=== PATIENT | female | born 1960 | race Caucasian/White ===

== ENCOUNTER 2018-05-04 12:25 | Emergency (ER) | payer BC ==
[~2018-05-04] VITALS: Ht 160 cm; Wt 77.1 kg
[~2018-05-04 12:25] MED LIST: BPR100T PO; CEFP200T2 PO; CPR500T PO; HYDR1TAB8 OP; LEVO500T69 PO; NITR100C PO; ONDAN4ODT PO; PHEN200T27 PO; POTA10TA17 PO; PROP1TAB77 PO; SRTR100T PO; TMSL.4C PO; TPR100T PO; [UNRECOGNIZED DRUG - CODE] PO
--- OUTSIDE RECORDS SUMMARY | 2018-05-04 12:30 | XMS REPORT ---
Author Author GERALD ROJAS Organization [facility] Address [address] [place] [address] Care Team Providers Care Instrument Room Technician Name Role Phone GERALD ROJAS Unavailable PROBLEMS Unknown Problems ALLERGIES No Information ENCOUNTERS Encounter Location Date Diagnosis [facility] [address] [facility] [id number] [address] Feb, [facility] IN [facility] [address] [facility] [id number] [address] Apr, Visit for TB skin test Z11.1 [facility] [address] [id number] [address] Mar, Encounter for immunization Z23 IMMUNIZATIONS No Known Immunizations SOCIAL HISTORY Never Assessed REASON FOR VISIT medication PLAN OF CARE VITAL SIGNS MEDICATIONS Medication Instructions Dosage Frequency Start Date End Date Duration Status Albenza 200 mg Orally once repeat in 2 weeks 2 tablets Feb, Active RESULTS No Results PROCEDURES No Known procedures INSTRUCTIONS MEDICATIONS ADMINISTERED No Known Medications
--- OUTSIDE RECORDS SUMMARY | 2018-05-04 12:30 | XMS REPORT ---
Author Author PAIGE PIRES Organization [employer] Address Unknown Phone Unavailable Care Team Providers Care Membership Correspondent Name Role Phone PAIGE PIRES Unavailable Allergies No Known Allergies Problems Problem Type Condition Code Onset Dates Condition Status Assessment Encounter for immunization Z23 Active Medications No Known Medications Procedures Procedure Coding System Code Date SINGLE IMMUNIZATION ADMIN CPT-4 01553 Mar 27, 2015 FLUARIX QUAD (3 & UP)-GSK-2014 CPT-4 34021 Mar 27, 2015 Results No Known Results Immunizations Vaccine Administration Date FLUARIX QUAD (3 & UP)-GSK-2014Mar 27, 2015 Summary Purpose [employer] Submission
--- OUTSIDE RECORDS SUMMARY | 2018-05-04 12:30 | XMS REPORT | Continuity of Care Document ---
Author Author [facility] Organization [facility] Address Unknown Phone Unavailable Allergies Active Description Code Type Severity Reaction Onset Reported/Identified Relationship to Patient Clinical Status Yes acetaminophen [id number] Drug Allergy Mild VOMITING 01/24/2010 Yes propoxyphene [id number] Drug Allergy Mild VOMITING 01/24/2010 Medications There is no data. Problems Date Dx Coded Attending Type Code Diagnosis Diagnosed By 01/22/2010 Ot 592.0 01/23/2010 Ot 599.0 01/23/2010 Ot 787.03 01/23/2010 Ot 789.00 01/23/2010 Ot V45.89 01/27/2010 Ot 276.8 01/27/2010 Ot 486 01/27/2010 Ot 564.00 01/27/2010 Ot 592.9 01/27/2010 Ot 599.0 01/27/2010 Ot 784.0 01/27/2010 Ot 790.6 01/27/2010 Ot 997.5 02/19/2010 Ot 575.11 04/08/2010 Ot 592.0 04/30/2010 Ot 787.91 DIARRHEA 05/31/2011 Ot 592.0 CALCULUS OF KIDNEY 06/04/2012 Ot 592.1 CALCULUS OF URETER 06/04/2012 Ot 789.09 ABDOMINAL PAIN, OTHER SPECIFIED SITE 10/16/2014 Ot V16.3 10/16/2014 Ot V76.11 10/16/2014 Ot 787.02 10/16/2014 Ot 789.00 10/16/2014 Ot 599.0 10/16/2014 Ot 592.0 10/16/2014 Ot 789.00 10/16/2014 Ot 790.6 10/16/2014 Ot 592.0 10/16/2014 Ot V72.83 10/16/2014 Ot V74.8 10/16/2014 Ot 592.0 10/16/2014 Ot V67.09 10/16/2014 Ot 575.8 10/16/2014 Ot V72.63 10/16/2014 Ot V72.81 10/16/2014 Ot V74.8 10/16/2014 Ot 592.0 10/16/2014 Ot 959.4 10/16/2014 Ot E000.8 10/16/2014 Ot E849.5 10/16/2014 Ot E928.9 10/16/2014 Ot 719.47 10/16/2014 Ot 592.0 10/16/2014 Ot V76.12 11/27/2014 MOIZ HALE N PLANT CUSTODIAN Ot 719.41 12/02/2014 Ot V16.3 12/02/2014 Ot V76.11 12/02/2014 Ot 787.02 12/02/2014 Ot 789.00 12/02/2014 Ot 599.0 12/02/2014 Ot 592.0 12/02/2014 Ot 789.00 12/02/2014 Ot 790.6 12/02/2014 Ot 592.0 12/02/2014 Ot V72.83 12/02/2014 Ot V74.8 12/02/2014 Ot 592.0 12/02/2014 Ot V67.09 12/02/2014 Ot 575.8 12/02/2014 Ot V72.63 12/02/2014 Ot V72.81 12/02/2014 Ot V74.8 12/02/2014 Ot 592.0 12/02/2014 Ot 959.4 12/02/2014 Ot E000.8 12/02/2014 Ot E849.5 12/02/2014 Ot E928.9 12/02/2014 Ot 719.47 12/02/2014 Ot 592.0 12/02/2014 Ot V76.12 12/02/2014 MOIZ HALE N PLANT CUSTODIAN Ot 719.41 12/29/2014 Ot V16.3 12/29/2014 Ot V76.11 12/29/2014 Ot 787.02 12/29/2014 Ot 789.00 12/29/2014 Ot 599.0 12/29/2014 Ot 592.0 12/29/2014 Ot 789.00 12/29/2014 Ot 790.6 12/29/2014 Ot 592.0 12/29/2014 Ot V72.83 12/29/2014 Ot V74.8 12/29/2014 Ot 592.0 12/29/2014 Ot V67.09 12/29/2014 Ot 575.8 12/29/2014 Ot V72.63 12/29/2014 Ot V72.81 12/29/2014 Ot V74.8 12/29/2014 Ot 592.0 12/29/2014 Ot 959.4 12/29/2014 Ot E000.8 12/29/2014 Ot E849.5 12/29/2014 Ot E928.9 12/29/2014 Ot 719.47 12/29/2014 Ot 592.0 12/29/2014 Ot V76.12 12/29/2014 MOIZ HALE N PLANT CUSTODIAN Ot 719.41 10/12/2015 Ot V16.3 10/12/2015 Ot V76.11 10/12/2015 Ot 959.4 HAND INJURY NOS 10/12/2015 Ot E000.8 OTHER EXTERNAL CAUSE STATUS 10/12/[address] E849[address]/HIGHWAY 10/12/2015 Ot E928.9 ACCIDENT NOS 10/12/2015 Ot 719.47 JOINT PAIN- ANKLE 10/12/2015 Ot 592.0 CALCULUS OF KIDNEY 10/12/2015 Ot V76.12 OTH SCREEN MAMMO-MALIGN NEOPLASM OF [place] 10/12/2015 MOIZ HALE N [employer] CUSTODIAN Ot 719.41 JOINT PAIN-SHLDER 11/24/2015 Ot V16.3 11/24/2015 Ot V76.11 11/24/2015 Ot 959.4 HAND INJURY NOS 11/24/2015 Ot E000.8 OTHER EXTERNAL CAUSE STATUS 11/24/2015 Ot E849[address]/HIGHWAY 11/24/2015 Ot E928.9 ACCIDENT NOS 11/24/2015 Ot 719.47 JOINT PAIN- ANKLE 11/24/2015 Ot 592.0 CALCULUS OF KIDNEY 11/24/2015 Ot V76.12 OTH SCREEN MAMMO-MALIGN NEOPLASM OF [place] 11/24/2015 MOIZ HALE N PLANT CUSTODIAN Ot 719.41 JOINT PAIN-SHLDER 01/14/2016 Ot V16.3 01/14/2016 Ot V76.11 01/14/2016 Ot 959.4 HAND INJURY NOS 01/14/2016 Ot E000.8 OTHER EXTERNAL CAUSE STATUS 01/14/2016 Ot E849.[address]/HIGHWAY 01/14/2016 Ot E928.9 ACCIDENT NOS 01/14/2016 Ot 719.47 JOINT PAIN- ANKLE 01/14/2016 Ot 592.0 CALCULUS OF KIDNEY 01/14/2016 Ot V76.12 OTH SCREEN MAMMO-MALIGN NEOPLASM OF [place] 01/14/2016 MOIZ HALE N PLANT CUSTODIAN Ot 719.41 JOINT PAIN-SHLDER 01/15/2016 Ot V16.3 01/15/2016 Ot V76.11 01/15/2016 Ot 959.4 HAND INJURY NOS 01/15/2016 Ot E000.8 OTHER EXTERNAL CAUSE STATUS 01/15/2016 Ot E849.[address]/HIGHWAY 01/15/2016 Ot E928.9 ACCIDENT NOS 01/15/2016 Ot 719.47 JOINT PAIN- ANKLE 01/15/2016 Ot 592.0 CALCULUS OF KIDNEY 01/15/2016 Ot V76.12 OTH SCREEN MAMMO-MALIGN NEOPLASM OF [place] 01/15/2016 MOIZ HALE N PLANT CUSTODIAN Ot 719.41 JOINT PAIN-SHLDER 01/22/2016 Ot V16.3 01/22/2016 Ot V76.11 01/22/2016 Ot 959.4 HAND INJURY NOS 01/22/2016 Ot E000.8 OTHER EXTERNAL CAUSE STATUS 01/22/2016 Ot E849.[address]/HIGHWAY 01/22/2016 Ot E928.9 ACCIDENT NOS 01/22/2016 Ot 719.47 JOINT PAIN- ANKLE 01/22/2016 Ot 592.0 CALCULUS OF KIDNEY 01/22/2016 Ot V76.12 OTH SCREEN MAMMO-MALIGN NEOPLASM OF [place] 01/22/2016 MOIZ HALE N PLANT CUSTODIAN Ot 719.41 JOINT PAIN-SHLDER 11/26/2016 Ot V16.3 11/26/2016 Ot V76.11 11/26/2016 Ot V76.12 OTH SCREEN MAMMO-MALIGN NEOPLASM OF [place] 11/26/2016 MOIZ HALE N PLANT CUSTODIAN Ot 719.41 JOINT PAIN-SHLDER 03/17/2017 Ot V16.3 03/17/2017 Ot V76.11 03/17/2017 Ot V76.12 OTH SCREEN MAMMO-MALIGN NEOPLASM OF [place] 03/17/2017 MOIZ HALE Dawson PLANT CUSTODIAN Ot 719.41 JOINT PAIN-SHLDER 06/03/2017 Ot V16.3 06/03/2017 Ot V76.11 06/03/2017 Ot V76.12 OTH SCREEN MAMMO-MALIGN NEOPLASM OF [place] 06/03/2017 MOIZ HALE Dawson PLANT CUSTODIAN Ot 719.41 JOINT PAIN-SHLDER 09/02/2017 Ot V16.3 09/02/2017 Ot V76.11 09/02/2017 Ot V76.12 OTH SCREEN MAMMO-MALIGN NEOPLASM OF [place] 09/02/2017 MOIZ HALE Dawson PLANT CUSTODIAN Ot 719.41 JOINT PAIN-SHLDER Procedures There is no data. Results There is no data. Encounters ACCT No. Visit Date/Time Discharge Status Pt. Type Provider Facility Loc./Unit Complaint [id number] 05/03/2017 09:00:00 05/03/2017 23:59:59 CLS Preadmit DAYSI HALEREYNALDO Osman PL[employer] CUSTODIAN [facility] RAD SCREENING [id number] 03/17/2017 07:19:00 03/17/2017 23:59:59 CLS Preadmit DAYSI HALEREYNALDO Osman PLANT CUSTODIAN [facility] RAD SCREENING [id number] 10/18/2014 09:01:00 10/18/2014 23:59:59 CLS Outpatient DAYSI HALESTEPHANY DHALIWAL [facility] RAD LEFT SHOULDER PAIN, DECREASED ROM [id number] 10/16/2014 09:37:00 Document Registration [id number] 10/16/2014 09:37:00 Document Registration [id number] 10/16/2014 09:37:00 Document Registration [id number] 10/16/2014 09:36:00 Document Registration [id number] 10/16/2014 09:36:00 Document Registration [id number] 10/16/2014 09:36:00 Document Registration [id number] 10/16/2014 09:36:00 Document Registration [id number] 06/01/2011 00:00:00 Document Registration [id number] 05/10/2011 14:11:00 Document Registration [id number] 11/30/2010 15:55:00 Document Registration [id number] 04/09/2010 00:00:00 Document Registration [id number] 02/19/2010 05:37:00 Document Registration [id number] 02/12/2010 15:41:00 Document Registration [id number] 02/02/2010 17:04:00 Document Registration [id number] 01/25/2010 01:15:00 Document Registration [id number] 01/23/2010 01:35:00 Document Registration [id number] 01/22/2010 05:36:00 Document Registration [id number] 01/19/2010 07:45:00 Document Registration [id number] 01/06/2010 09:50:00 Document Registration [id number] 01/06/2010 07:46:00 Document Registration [id number] 01/02/2010 10:48:00 Document Registration [id number] 12/24/2005 15:19:00 Document Registration [id number] 04/27/2017 18:35:00 04/27/2017 23:59:59 [facility] Outpatient PAIGE PIRES [id number] 10/19/2014 04:22:55 ACT Document Registration
--- OUTSIDE RECORDS SUMMARY | 2018-05-04 12:30 | XMS REPORT ---
Author Author BIANCA MENENDEZ [facility] Address [address] [place] [address] Phone Unavailable Care Team Providers Care Fructose Loader Name Role Phone BIANCA MENENDEZ Unavailable Unavailable PROBLEMS Unknown Problems ALLERGIES No Information ENCOUNTERS Encounter Location Date Diagnosis [facility] [id number], [place] [address] Mar, Encounter for immunization Z23 [facility] [id number], [place] [address] Feb, [facility] [id number], [place] [address] Apr, Visit for TB skin test Z11.1 [facility] [id number], [place] [address] Mar, 2015 Encounter for immunization Z23 IMMUNIZATIONS Vaccine Route Administration Date Status FLULAVAL QUAD 0.5ML (6 MO & UP) 2017 IM Intramuscular Mar 14, 2018 Administered SOCIAL HISTORY Never Assessed REASON FOR VISIT Flu Shot PLAN OF CARE VITAL SIGNS MEDICATIONS Unknown Medications RESULTS No Results PROCEDURES Procedure Date Ordered Result Body Site FLULAVAL QUAD 0.5ML (6 MO AND UP) 2018 Mar 14, 2018 SINGLE IMMUNIZATION ADMIN Mar 14, 2018 INSTRUCTIONS MEDICATIONS ADMINISTERED No Known Medications
--- NOTE | 2018-05-04 12:48 | ED Integumentary General ---
General Chief Complaint: Laceration Stated Complaint: CUT LEFT POINTER FINGER Source: patient Exam Limitations: no limitations History of Present Illness Date Seen by Provider: May 04, 2018 Time Seen by Provider: 12:47 Allergies and Home Medications Allergies Coded Allergies: acetaminophen (Unverified Adverse Reaction, Mild, VOMITING, 01/24/10) propoxyphene (Unverified Adverse Reaction, Mild, VOMITING, 01/24/10) Home Medications Ciprofloxacin 500 Mg Tablet, 1 TAB PO BID FOR INFECTION Prescribed by: SIGIFREDO TINOCO on 06/04/12516 Hydrocodone Bit/Ibuprofen 1 Each Tablet, 1-2 EACH OP Q 4 - 6 HRS PRN FOR PAIN Prescribed by: SIGIFREDO TINOCO on 06/04/12516 Ondansetron Hcl 4 Mg Tab, 4 MG PO Q4H FOR NAUSEA AND VOMITING Prescribed by: SIGIFREDO TINOCO on 06/04/12516 Potassium Citrate 10 Meq Tablet.sa, 10 MEQ PO TID, (Reported) Sertraline Hcl 100 Mg Tablet, 1 TAB PO DAILY, (Reported) Tamsulosin Hcl 0.4 Mg Cap.sr.24h, 1 CAP PO DAILY Prescribed by: SIGIFREDO TINOCO on 06/04/12516 Topiramate 100 Mg Tab, 100 MG PO DAILY, (Reported) Past Fgphjrj-Zyadpq-Zbhyrk Hx Patient Social History Alcohol Use: Occasionally Uses Recreational Drug Use: No Smoking Status: Never a Smoker Recent Foreign Travel: No Contact w/Someone Who Travel: No Recent Hopitalizations: No Physical Abuse: No Sexual Abuse: No Mistreated: No Fear: No Immunizations Up To Date Date of Influenza Vaccine: Mar 22, 2012 Past Medical History Surgeries: Yes (R SHOULDER, L KNEE.) Gallbladder, Tubal Ligation Respiratory: No Cardiac: No Neurological: No Reproductive Disorders: No Sexually Transmitted Disease: No Genitourinary: No Gastrointestinal: No Musculoskeletal: Yes (fibromyalgia) Endocrine: No Psychosocial: Yes Blood Disorders: No Physical Exam Vital Signs Vital Signs - First Documented 05/04/18 12:42 Temp 98.2 Pulse 102 Resp 16 B/P (MAP) 146/101 (116) Pulse Ox 96 Capillary Refill : Less Than 3 Seconds Progress/Results/Core Measures Results/Orders My Orders Orders - ABRAM MARTINEZ Lidocaine 1% Inj 20 Ml (Xylocaine 1% Inj (05/04/18 13:00) Dipht,Pertuss(Acell),Tet Adult (Boostrix (05/04/18 13:00) Medications Given in ED Vital Signs/I&O 05/04/18 05/04/18 12:42 13:13 Temp 98.2 Pulse 102 74 Resp 16 16 B/P (MAP) 146/101 (116) 136/87 (103) Pulse Ox 96 99 Departure Impression Primary Impression: Laceration Disposition: HOME, SELF-CARE Condition: Stable/Unchanged Departure-Patient Inst. Decision time for Depature: 12:47 Referrals: TAMIKO DUNCAN MD (PCP/Family) Primary Care Physician Patient Instructions: Laceration Repair With Glue (DC) Add. Discharge Instructions: Let the glue fall off on its own. Watch for signs of infection such as increased redness, swelling, drainage, pain. If the wound should start bleeding apply pressure or reinforce the bandage. Follow-up with her primary care provider as needed return back to the emergency room for any worsening symptoms or concerns as needed. All discharge instructions reviewed with patient and/or family. Voiced understanding. ABRAM MARTINEZ May 04, 2018 12:47
[2018-05-04] MEDS ORDERED: TETANUS,DIPTH,PERTUSS P/F (BOOSTRIX) 0.5 ML VIAL IM ONE (13:00)
[2018-05-04] MEDS ORDERED: LIDOCAINE 1% INJ 20 ML 20 ML VIAL INJ ONE (13:00)
[2018-05-04 13:13] VITALS: BP 136/87
== END 2018-05-04 13:13 | disposition home or self-care (01) ==
LOC: EDUNIT# 12:25 → ER 12:27
DX: S61.211A Laceration without foreign body of left index finger without damage to nail, initial encounter (principal); Z88.8 Allergy status to other drugs, medicaments and biological substances; Z98.51 Tubal ligation status; Z23 Encounter for immunization; Y28.9XXA Contact with unspecified sharp object, undetermined intent, initial encounter
CPT/HCPCS: 12001; 90715

== ENCOUNTER 2021-11-14 22:13 | Emergency (ER) | payer BC ==
[~2021-11-14] VITALS: Ht 162.5 cm; Wt 91.6 kg
[2021-11-15 01:10] VITALS: BP 137/92
[2021-11-15] MEDS ORDERED: TETANUS,DIPTH,PERTUSS P/F (BOOSTRIX) 0.5 ML VIAL IM ONE (02:00)
--- NOTE | 2021-11-15 02:55 | ED Fall/Injury ---
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 PT C/O LEFT SHOULDER AND KNEE PAIN. Allergies and Home Medications Allergies Coded Allergies: acetaminophen (Unverified Adverse Reaction, Mild, VOMITING, 01/24/10) propoxyphene (Unverified Adverse Reaction, Mild, VOMITING, 01/24/10) Patient Home Medication List Ciprofloxacin (Cipro) 500 Mg Tablet, 1 TAB PO BID Prescribed by: SIGIFREDO TINOCO on 06/04/12516 Hydrocodone Bit/Ibuprofen (Vicoprofen 200-7.5 Mg Tab) 1 Each Tablet, 1-2 EACH OP Q 4 - 6 HRS PRN Prescribed by: SIGIFREDO TINOCO on 06/04/12516 Ondansetron Hcl (Zofran Oral Dissolve) 4 Mg Tab, 4 MG PO Q4H Prescribed by: SIGIFREDO TINOCO on 06/04/12516 Potassium Citrate (Potassium Citrate) 10 Meq Tablet.sa, 10 MEQ PO TID, (Reported) Entered as Reported by: SHERIE KENNEDY on 02/12/10 1604 Sertraline Hcl (Zoloft) 100 Mg Tablet, 1 TAB PO DAILY, (Reported) Entered as Reported by: DAYNA WILCOX on 01/23/10 0143 Tamsulosin Hcl (Flomax) 0.4 Mg Cap.sr.24h, 1 CAP PO DAILY Prescribed by: SIGIFREDO TINOCO on 06/04/12516 Topiramate (Topamax 100 Mg) 100 Mg Tab, 100 MG PO DAILY, (Reported) Entered as Reported by: ANA ALLISON on 01/19/10 0825 Past Qrkpcqr-Ignmar-Opuoer Hx Patient Social History Tobacco Use?: No Use of E-Cig and/or Vaping dev: No Substance use?: No Alcohol Use?: No Immunizations Up To Date Influenza Vaccine Up-to-Date: Yes; Up-to-Date First/Initial COVID19 Vaccinat: 2020 Second COVID19 Vaccination Donald: 2020 COVID19 Vaccine Blood Bank Credit Clerk: LAWRENCE Past Medical History Surgeries: Yes (R SHOULDER, L KNEE.) Gallbladder, Tubal Ligation Respiratory: No Cardiac: No Neurological: No Reproductive Disorders: No Sexually Transmitted Disease: No Genitourinary: No Gastrointestinal: No Musculoskeletal: Yes (fibromyalgia) Endocrine: No Psychosocial: Yes Blood Disorders: No Physical Exam Vital Signs Vital Signs - First Documented 11/15/21 01:10 Temp 36.4 Pulse 79 Resp 20 B/P (MAP) 137/92 (107) Pulse Ox 97 O2 Delivery Room Air Capillary Refill : Less Than 3 Seconds Height, Weight, BMI Height: 5'3.00" Weight: 170lbs. oz. 77.687172uj; 34.00 BMI Method:Stated Progress/Results/Core Measures Results/Orders My Orders Orders - SIGIFREDO TINOCO DO Shoulder, Left, 3 Views (11/15/21 01:51) Humerus, Left, 2 Views (11/15/21 01:51) Knee, Left, 3 Views (11/15/21 01:51) Dipht,Pertuss(Acell),Tet Adult (Boostrix (11/15/21 02:00) Vital Signs/I&O 11/15/21 01:10 Temp 36.4 Pulse 79 Resp 20 B/P (MAP) 137/92 (107) Pulse Ox 97 O2 Delivery Room Air Blood Pressure Mean: 107 Departure Impression Primary Impression: Status post fall Additional Impressions: Injury of left shoulder Left knee injury Byouoljwwj-iugjscuvq-hrecqxn (DPT) vaccination administered at current visit Disposition: HOME, SELF-CARE Condition: Stable Departure-Patient Inst. Decision time for Depature: 02:50 Referrals: CRISTA WU MD, RICK D MD (PCP/Family) Primary Care Physician ORTHO 4 STATES Patient Instructions: Diphtheria and Tetanus Toxoids, and Acellular Pertussis Vaccine, Knee Pain, Preventing Falls ED, Shoulder Pain (DC) Add. Discharge Instructions: ICE TO SORE AREAS AT 20 MINUTE INTERVALS WEAR SHOULDER IMMOBILIZER AT ALL TIMES FOLLOW UP WITH ORTHO [address] WU NEXT WEEK FOR FURTHER CARE--CALL ON TUESDAY TO SCHEDULE APPOINTMENT All discharge instructions reviewed with patient and/or family. Voiced understanding. Scripts Naproxen (Naproxen) 500 Mg Tablet. 500 MG PO BID, #20 TAB Prov: SIGIFREDO TINOCO DO 11/15/21 SIGIFREDO TINOCO DO Nov 15, 2021 02:55
[2021-11-15] MEDS ORDERED: NAPR500T8 PO (02:56)
[2021-11-15] MEDS ORDERED: RX-NAPROXEN (NAPROSYN) 250 MG TAB PPK#4 PO STA (02:56)
--- NOTE | 2021-11-15 07:11 | Diagnostic Imaging Report ---
INDICATION: Pain. 3 views were obtained. FINDINGS: The alignment is normal. There is no fracture or dislocation. There are mild degenerative changes. There is no joint effusion. No fracture or dislocation. IMPRESSION: Mild degenerative changes, otherwise unremarkable. Dictated by: Dictated on workstation # [id number]
--- NOTE | 2021-11-15 07:35 | Diagnostic Imaging Report ---
INDICATION: Pain FINDINGS: The alignment is normal. There is no fracture or dislocation. The soft tissues are unremarkable. IMPRESSION: No acute fracture or dislocation. Dictated by: Dictated on workstation # [id number]
--- NOTE | 2021-11-15 07:40 | Diagnostic Imaging Report ---
INDICATION: Pain. 2 views were obtained. FINDINGS: The alignment is normal. No acute fracture or dislocation. Left lung is clear. The soft tissues are unremarkable. IMPRESSION: No acute fracture or dislocation of the left humerus. Dictated by: Dictated on workstation # [id number]
== END 2021-11-15 03:18 | disposition home or self-care (01) ==
LOC: EDUNIT# 22:13 → ER 22:15
DX: S49.92XA Unspecified injury of left shoulder and upper arm, initial encounter (principal); S89.92XA Unspecified injury of left lower leg, initial encounter; F84.0 Autistic disorder; Z23 Encounter for immunization; Y93.02 Activity, running; W18.30XA Fall on same level, unspecified, initial encounter
CPT/HCPCS: 73030; 73060; 73562; 90715